=== PATIENT | female | born 2000 | race Caucasian/White ===

== ENCOUNTER 2025-05-25 21:48 | Emergency (ER) | payer OTHER ==
[~2025-05-25] VITALS: Ht 165.1 cm; Wt 70.0 kg
[2025-05-25 22:19] VITALS: O2SAT 100
[2025-05-25 23:26] VITALS: BP 126/75; PULSE 88; RESP 18; TEMP 36.9; O2SAT 100
== END 2025-05-25 23:27 | disposition home or self-care (01) ==
LOC: ER 21:48
DX: F41.9 Anxiety disorder, unspecified (principal); F32.A Depression, unspecified; Z59.71 Insufficient health insurance coverage
CPT/HCPCS: 99282